=== PATIENT | female | born 1975 | race Caucasian/White ===

== ENCOUNTER 2017-04-14 17:29 | Emergency (ER) | payer OTHER ==
[~2017-04-14] VITALS: Ht 157.5 cm; Wt 100.0 kg
[2017-04-14 17:31] VITALS: BP 130/83; PULSE 84; RESP 15; TEMP 98.3; O2SAT 99
--- NOTE | 2017-04-14 17:54 | PD ---
Physical Exam Date Seen by Provider: Apr 14, 2017 Narrative 41 yo female here for evaluation of high blood sugars. Diabetic and compliant with meds per patient. Feels weak and kidney pain. Polyuria and polydipsia. Seen by doctor and found to have ketones in urine and sent here. No chest pain or SOB. BS today in the 300s. Vitals are stable in triage. Awaiting Bed placement. Data Data Last Documented VS Vital Signs Date Time Temp Pulse Resp B/P Pulse Ox O2 Delivery O2 Flow Rate FiO2 04/14/17 17:31 98.3 84 15 130/83 99 MDM Medical Record Reviewed: Yes Supervised Visit with HAROLDO: No Dc Juarez Apr 14, 2017 17:54
--- NOTE | 2017-04-14 19:39 | PD ---
HPI Chief Complaint: Diabetic Time Seen by Provider: 19:39 Travel History International Travel<30 days: No Contact w/Intl Traveler<30days: No Traveled to known affect area: No History of Present Illness HPI 41-year-old female with history of diabetes presents to emergency department for evaluation of elevated blood glucose. Patient states that it has been 500 yesterday and today she saw her primary care provider who advised to come to the emergency department. Patient states she has been not feeling well and they recently changed her diabetic medications. She states that before that her blood glucose uncontrolled but not consistently ranged oriented 200-250. She does report bilateral flank pain, frequent urination, and extreme thirst. She has not been recently ill. No fever or chills. Denies any other symptoms at this time. PFSH Past Medical History Cardiovascular Problems: Yes (Tachycardia) Diabetes: Yes ?: Not LMP: 03/29/17 Social History Tobacco Use: No Allergies-Medications (Allergen,Severity, Reaction): Coded Allergies: Morphine (Verified Allergy, Unknown, hives, 04/14/17) Reported Meds & Prescriptions Reported Meds & Active Scripts Active Reported Famotidine 20 Mg Tab 20 Mg PO DAILY Tanzeum 4-Pack Inj (Albiglutide) 50 Mg Pfpen 50 Mg SQ Q7D Farxiga (Dapagliflozin) 10 Mg Tab 10 Mg PO DAILY Hydrochlorothiazide 25 Mg Tab 25 Mg PO DAILY Metoprolol Tartrate 25 Mg Tab 25 Mg PO DAILY Review of Systems Except as stated in HPI: all other systems reviewed are Neg Physical Exam Narrative GENERAL: Obese female patient, in no acute distress SKIN: Focused skin assessment warm/dry. HEAD: Atraumatic. Normocephalic. EYES: Pupils equal and round. No scleral icterus. No injection or drainage. ENT: No nasal bleeding or discharge. Mucous membranes pink and moist. NECK: Trachea midline. No JVD. CARDIOVASCULAR: Regular rate and rhythm. No murmur appreciated. RESPIRATORY: No accessory muscle use. Clear to auscultation. Breath sounds equal bilaterally. GASTROINTESTINAL: Abdomen soft, non-tender, nondistended. Hepatic and splenic margins not palpable. MUSCULOSKELETAL: No obvious deformities. No clubbing. No cyanosis. No edema. NEUROLOGICAL: Awake and alert. No obvious cranial nerve deficits. Motor grossly within normal limits. Normal speech. PSYCHIATRIC: Appropriate mood and affect; insight and judgment normal. Data Data Last Documented VS Vital Signs Date Time Temp Pulse Resp B/P Pulse Ox O2 Delivery O2 Flow Rate FiO2 04/14/17 21:44 75 18 111/68 99 Room Air 04/14/17 17:31 98.3 Orders Complete Blood Count With Diff (04/14/17 19:50) Comprehensive Metabolic Panel (04/14/17 19:50) Lipase (04/14/17 19:50) Urinalysis - C+S If Indicated (04/14/17 19:50) Iv Access Insert/Monitor (04/14/17 19:50) Ecg Monitoring (04/14/17 19:50) Oximetry (04/14/17 19:50) Ondansetron Inj (Zofran Inj) (04/14/17 20:00) Sodium Chlor 0.9% 1000 Ml Inj (Ns 1000 M (04/14/17 19:50) Sodium Chloride 0.9% Flush (Ns Flush) (04/14/17 20:00) Electrocardiogram (04/14/17 19:50) Ed Urine Pregnancytest Poc (04/14/17 19:50) Beta Hydroxybutyrate (Acetone) (04/14/17 19:50) Sodium Chlor 0.9% 1000 Ml Inj (Ns 1000 M (04/14/17 21:00) Ketorolac Inj (Toradol Inj) (04/14/17 21:45) Labs Laboratory Tests Test 04/14/17 04/14/17 20:05 20:10 Urine Color LIGHT-YELLOW Urine Turbidity CLEAR Urine pH 5.0 Urine Specific [place] 1.032 Urine Protein NEG mg/dL Urine Glucose (UA) 1000 mg/dL Urine Ketones 10 mg/dL Urine Occult Blood NEG Urine Nitrite NEG Urine Bilirubin NEG Urine Urobilinogen LESS THAN 2.0 MG/DL Urine Leukocyte Esterase NEG Urine RBC LESS THAN 1 /hpf Urine WBC 2 /hpf Urine Squamous Epithelial 5 /hpf Cells Microscopic Urinalysis Comment CULT NOT INDICATED White Blood Count 6.7 TH/MM3 Red Blood Count 5.14 MIL/MM3 Hemoglobin 16.2 GM/DL Hematocrit 46.2 % Mean Corpuscular Volume 89.9 FL Mean Corpuscular Hemoglobin 31.6 PG Mean Corpuscular Hemoglobin 35.1 % Concent Red Cell Distribution Width 13.1 % Platelet Count 229 TH/MM3 Mean Platelet Volume 7.9 FL Neutrophils (%) (Auto) 55.4 % Lymphocytes (%) (Auto) 33.6 % Monocytes (%) (Auto) 7.3 % Eosinophils (%) (Auto) 2.8 % Basophils (%) (Auto) 0.9 % Neutrophils # (Auto) 3.7 TH/MM3 Lymphocytes # (Auto) 2.3 TH/MM3 Monocytes # (Auto) 0.5 TH/MM3 Eosinophils # (Auto) 0.2 TH/MM3 Basophils # (Auto) 0.1 TH/MM3 CBC Comment DIFF FINAL Differential Comment Sodium Level 136 MEQ/L Potassium Level 3.2 MEQ/L Chloride Level 98 MEQ/L Carbon Dioxide Level 26.8 MEQ/L Anion Gap 11 MEQ/L Blood Urea Nitrogen 17 MG/DL Creatinine 0.78 MG/DL Estimat Glomerular Filtration 82 ML/MIN Rate Random Glucose 289 MG/DL Calcium Level 9.4 MG/DL Total Bilirubin 0.5 MG/DL Aspartate Amino Transf 31 U/L (AST/SGOT) Alanine Aminotransferase 48 U/L (ALT/SGPT) Alkaline Phosphatase 61 U/L Total Protein 7.1 GM/DL Albumin 3.7 GM/DL Lipase 162 U/L B-Hydroxybutyrate 1.29 MMOL/L [facility] Medical Decision Making Medical Screen Exam Complete: Yes Emergency Medical Condition: Yes Medical Record Reviewed: Yes Differential Diagnosis Hyperglycemia versus normal exam versus DKA versus renal calculi versus UTI Narrative Course 4-year-old female with history diabetes presents to department for evaluation of elevated blood sugar. Patient appears without distress. Her vital signs are stable. Laboratory Tests Test 04/14/17 04/14/17 20:05 20:10 Urine Color LIGHT-YELLOW Urine Turbidity CLEAR Urine pH 5.0 Urine Specific [place] 1.032 Urine Protein NEG mg/dL Urine Glucose (UA) 1000 mg/dL Urine Ketones 10 mg/dL Urine Occult Blood NEG Urine Nitrite NEG Urine Bilirubin NEG Urine Urobilinogen LESS THAN 2.0 MG/DL Urine Leukocyte Esterase NEG Urine RBC LESS THAN 1 /hpf Urine WBC 2 /hpf Urine Squamous Epithelial 5 /hpf Cells Microscopic Urinalysis Comment CULT NOT INDICATED White Blood Count 6.7 TH/MM3 Red Blood Count 5.14 MIL/MM3 Hemoglobin 16.2 GM/DL Hematocrit 46.2 % Mean Corpuscular Volume 89.9 FL Mean Corpuscular Hemoglobin 31.6 PG Mean Corpuscular Hemoglobin 35.1 % Concent Red Cell Distribution Width 13.1 % Platelet Count 229 TH/MM3 Mean Platelet Volume 7.9 FL Neutrophils (%) (Auto) 55.4 % Lymphocytes (%) (Auto) 33.6 % Monocytes (%) (Auto) 7.3 % Eosinophils (%) (Auto) 2.8 % Basophils (%) (Auto) 0.9 % Neutrophils # (Auto) 3.7 TH/MM3 Lymphocytes # (Auto) 2.3 TH/MM3 Monocytes # (Auto) 0.5 TH/MM3 Eosinophils # (Auto) 0.2 TH/MM3 Basophils # (Auto) 0.1 TH/MM3 CBC Comment DIFF FINAL Differential Comment Sodium Level 136 MEQ/L Potassium Level 3.2 MEQ/L Chloride Level 98 MEQ/L Carbon Dioxide Level 26.8 MEQ/L Anion Gap 11 MEQ/L Blood Urea Nitrogen 17 MG/DL Creatinine 0.78 MG/DL Estimat Glomerular Filtration 82 ML/MIN Rate Random Glucose 289 MG/DL Calcium Level 9.4 MG/DL Total Bilirubin 0.5 MG/DL Aspartate Amino Transf 31 U/L (AST/SGOT) Alanine Aminotransferase 48 U/L (ALT/SGPT) Alkaline Phosphatase 61 U/L Total Protein 7.1 GM/DL Albumin 3.7 GM/DL Lipase 162 U/L B-Hydroxybutyrate 1.29 MMOL/L Patient is given IV fluid and medication for her flank pain. I have reviewed the findings with her and my attending physician. Patient will be discharged home to follow-up with her primary care provider. She is comfortable with this plan of care. Diagnosis Primary Impression: Hyperglycemia due to type 2 diabetes mellitus Qualified Code: E11.65 - Type 2 diabetes mellitus with hyperglycemia, unspecified senior care insulin use status Additional Impression: Flank pain Referrals: Primary Care Physician Patient Instructions: Diabetic Hyperglycemia (DC), General Instructions Additional Instructions: Monitor blood glucose Follow up with your primary care Disposition: 01 DISCHARGE HOME Condition: Stable JulietteFrancie RICHARD Apr 14, 2017 19:39
[2017-04-14 19:49] VITALS: BP 125/83; PULSE 84; RESP 18; O2SAT 99
[2017-04-14] MEDS ORDERED: SODIUM CHLOR 0.9% 1000 ML INJ 1,000 ML IV SCH (19:50)
[2017-04-14] MEDS ORDERED: SODIUM CHLORIDE 0.9% FLUSH 10 ML FLUSH IV FLUSH PRN (20:00)
[2017-04-14] MEDS ORDERED: ONDANSETRON HCL 4 MG/2 ML VIAL IVP ONE (20:00)
[2017-04-14 20:30] VITALS: BP 113/75; PULSE 74; RESP 18; O2SAT 97
[2017-04-14 20:42] LABS: AUTOMATED NEUTROPHIL # 3.7 TH/MM3 (1.8-7.7); BASOPHIL # 0.1 TH/MM3 (0-0.2); BASOPHIL % 0.9 % (0.0-2.0); EOSINOPHIL # 0.2 TH/MM3 (0-0.4); EOSINOPHIL % 2.8 % (0.0-4.0); HEMATOCRIT 46.2 % (35.0-46.0); HEMO FLAGS DIFF FINAL; LYMPH % 33.6 % (9.0-44.0); LYMPHOCYTE # 2.3 TH/MM3 (1.0-4.8); MEAN CELL VOLUME 89.9 FL (80.0-100.0); MEAN CORPUSCULAR HEMOGLOBIN 31.6 PG (27.0-34.0); MEAN CORPUSCULAR HGB CONC 35.1 % (32.0-36.0); MONO % 7.3 % (0.0-8.0); NEUT % 55.4 % (16.0-70.0); PLATELET COUNT 229 TH/MM3 (150-450); RED BLOOD COUNT 5.14 MIL/MM3 (4.00-5.30); RED CELL DISTRIBUTION WIDTH 13.1 % (11.6-17.2); WHITE BLOOD COUNT 6.7 TH/MM3 (4.0-11.0)
[2017-04-14 20:47] LABS: BLOOD, URINE NEG (NEG); COMMENT (UR) CULT NOT INDICATED; CULTURE IF INDICATED CULT NOT INDICATED; GLUCOSE,URINE 1000 mg/dL (NEG); KETONE, URINE 10 mg/dL (NEG); NITRITE,URINE NEG (NEG); SQUAMOUS EPITHELIAL CELL URINE 5 /hpf (0-5); URINE COLOR LIGHT-YELLOW (YELLW/STRAW)
[2017-04-14] MEDS ORDERED: SODIUM CHLOR 0.9% 1000 ML INJ 1,000 ML IV ONE (21:00)
[2017-04-14 21:03] LABS: ALT (GPT) 48 U/L (10-53); ANION GAP 11 MEQ/L (5-15); AST (GOT) 31 U/L (15-37); BICARBONATE 26.8 MEQ/L (21.0-32.0); BLOOD UREA NITROGEN 17 MG/DL (7-18); CHLORIDE 98 MEQ/L (98-107); GLOMERULAR FILTRATION RATE 82 ML/MIN (>89); POTASSIUM 3.2 MEQ/L (3.5-5.1); SODIUM (NA) 136 MEQ/L (136-145)
[2017-04-14 21:05] LABS: ALKALINE PHOSPHATASE 61 U/L (45-117); BETA-HYDROXYBUTYRATE 1.29 MMOL/L (0.00-0.39); TOTAL BILIRUBIN ADULT 0.5 MG/DL (0.2-1.0)
[2017-04-14] MEDS ORDERED: FAMO20TA2 PO (21:34)
[2017-04-14] MEDS ORDERED: HYDR25TA5 PO (21:34)
[2017-04-14] MEDS ORDERED: ALBI1INJ2 SQ (21:34)
[2017-04-14] MEDS ORDERED: DAPA1TAB3 PO (21:34)
[2017-04-14] MEDS ORDERED: METO25TA3 PO (21:34)
[2017-04-14 21:44] VITALS: BP 111/68; PULSE 75; RESP 18; O2SAT 99
[2017-04-14] MEDS ORDERED: KETOROLAC TROMETHAMINE 30 MG/ML (IVP) VIAL IV PUSH ONE (21:45)
--- NOTE | 2017-04-15 11:14 | EKG ---
Date Performed: 04/14/2017 Time Performed: 20:22:16 PTAGE: 41 years EKG: Sinus rhythm NORMAL ECG NO PREVIOUS TRACING DOCTOR: Shayna Baxter Interpretating Date/Time 04/15/2017 11:12:53
== END 2017-04-14 22:05 | disposition home or self-care (01) ==
LOC: NEPC 17:29
DX: E11.65 Type 2 diabetes mellitus with hyperglycemia (principal); R10.9 Unspecified abdominal pain
CPT/HCPCS: 80053; 81001; 82010; 83690; 84703; 85025; 93005; 96374; 96375; 99284; J1885; J2405; J7030